=== PATIENT | female | born 1950 | race Caucasian/White ===

== ENCOUNTER → 2023-04-23 13:06 | Outpatient (REF) | payer MEDICARE, OTHER, SELFPAY | LOC: RAD 13:06 | PROVIDERS: ATTENDING PHYSICIAN Nurse Practitioner Adult Health | DX: I26.99 Other pulmonary embolism without acute cor pulmonale (principal); J98.11 Atelectasis; R59.9 Enlarged lymph nodes, unspecified; R93.89 Abnormal findings on diagnostic imaging of other specified body structures | CPT/HCPCS: 71260; Q9967 ==

== ENCOUNTER → 2023-11-25 11:03 | Outpatient (REF) | payer MEDICARE, OTHER, SELFPAY | LOC: RCS 11:03 | PROVIDERS: ATTENDING PHYSICIAN Internal Medicine; FAMILY PHYSICIAN Family Medicine | DX: I10 Essential (primary) hypertension (principal); I26.99 Other pulmonary embolism without acute cor pulmonale; R79.89 Other specified abnormal findings of blood chemistry; I27.20 Pulmonary hypertension, unspecified; I51.7 Cardiomegaly | CPT/HCPCS: 93306 ==

== ENCOUNTER → 2024-03-03 07:16 | Outpatient (REF) | payer MEDICARE, OTHER, SELFPAY | LOC: DHCBC/DCA 07:16 | PROVIDERS: ATTENDING PHYSICIAN Internal Medicine; FAMILY PHYSICIAN Family Medicine | DX: I10 Essential (primary) hypertension (principal); R79.89 Other specified abnormal findings of blood chemistry; I27.20 Pulmonary hypertension, unspecified; I51.7 Cardiomegaly; R07.89 Other chest pain | CPT/HCPCS: 78452; 93017; A9500; J2785 ==